=== PATIENT | male | born 1945 | race Caucasian/White ===

== ENCOUNTER → 2016-10-09 | Outpatient (REF) | payer MEDICARE ==
[~2016-10-09] MED LIST: /ACETCOD2T PO; /FAMO2TA PO; /WARF2TA PO; AMIT25TA10 PO; BABY81CH PO; CALCTAB52 PO; CARV6.25 PO; FISH1000 PO; LEVO25TA4 PO; MULTCAP PO; NEUR600T PO; NITR0.4D6 TD; PEPC10TA PO; SIMV40TA2 PO; ULTR50TA PO; VITA100L PO
== END ==
LOC: M LAB REF 16:55
PROVIDERS: ATTEND Internal Medicine Nephrology
DX: R80.9 Proteinuria, unspecified (principal)

== ENCOUNTER → 2016-10-16 | Outpatient (CLI) | payer MEDICARE ==
--- NOTE | 2016-10-16 16:43 | REP ---
KIDNEY SCAN WITH FLOW AND FUNCTION: HISTORY: Kidney disease. COMPARISON: None. After the intravenous administration of 8.6 mCi of technetium 99m MAG3 and renal flow and function scan was obtained. The dynamic renal flow study shows slightly delayed visualization of the kidneys as they have not retained radiotracer until 6 frames have shown aortic activity. The dynamic renal scan shows left renal hydronephrosis and caliectasis with poor washout characteristics visually bilaterally. Pre- and postvoid scintiscans show slightly decreased activity in the left sided hydronephrosis. Analysis of the renal functional curves show split differential analysis with 38.5% of the counts coming from the left kidney and 61.5% of the counts coming from the right. The count density data also confirms that decreased counts are seen in the left kidney compared to the right. The time to peak activity is 4 minutes bilaterally with the T-1/2 value of the left kidney just over 20 minutes which is abnormally prolonged with an incalculable T-1/2 value for the left kidney since is it is so markedly delayed. IMPRESSION: Abnormal renal flow and scan examination as described above with delayed visualization seen on the flow portion of the exam, abnormal T-1/2 values bilaterally as described above due to poor washout of the radiotracer, evidence of left sided hydronephrosis with little change during postvoid as described above, and other findings as described above. Signed by Rafat Colunga DO 10/17/2016 09:05 A
== END ==
LOC: M RAD 13:08
PROVIDERS: ATTEND Internal Medicine Nephrology
DX: N18.4 Chronic kidney disease, stage 4 (severe) (principal)
CPT/HCPCS: 78707; A9562